=== PATIENT | male | born 1945 | race Caucasian/White ===

== ENCOUNTER 2024-12-15 14:02 | Outpatient (REF) | payer OTHER, SELFPAY ==
--- NOTE | ~2024-12-15 | XR_ITS ---
EXAMINATION: XR LUMBAR SPINE 4 OR MORE VIEWS HISTORY: M43.16 - Spondylolisthesis, lumbar region COMPARISON: There are no prior studies for comparison. FINDINGS: AP, and neutral, flexion, and extension lateral views of the lumbar spine are submitted. Osseous mineralization is normal. Five nonrib-bearing lumbar vertebral bodies are identified, maintaining normal height without evidence of fracture. There is slight retrolisthesis of L1 on L2 and L2 on L3, and slight spondylolisthesis of L4 on L5. There is no significant change with flexion or extension.. There is severe degenerative disc disease with disc space narrowing and osteophyte formation. There is osteoarthritis of the facet joints. The visualized paraspinal soft tissues are unremarkable. XR/XR lumbar spine 4V min IMPRESSION: Moderate to severe degenerative disc disease. Slight retrolisthesis of L1 on L2 and L2 on L3, and slight spondylolisthesis of L4 on L5. There is no change in flexion or extension. Electronically signed by: Cristian Keen MD 12/16/2024 07:44 AM EDT
== END 2024-12-15 14:03 | disposition home or self-care (01) ==
LOC: HO.HOSX 14:02
PROVIDERS: PCP Internal Medicine; Referring Provider Internal Medicine; Visit Provider Neurological Surgery
DX: M43.16 Spondylolisthesis, lumbar region (principal)
CPT/HCPCS: 72110; 99202

== ENCOUNTER 2024-12-15 14:02 | Outpatient (AMB) | payer MEDICARE, OTHER, SELFPAY ==
[2024-12-15 14:34] VITALS: BMI 27.6
--- NOTE | 2024-12-15 14:34 | A.SPINEOV_ITS ---
Vital Signs 12/15/24 14:34 Height 5 ft 6 in Weight 171 lb BMI 27.6 Intake Visit Reasons: Back pain Intake Note: Mr. Merchant is here today c/o back pain. Diabetes Physician Required: No Allergies morphine Allergy (Severe, Verified 12/15/24 14:41) Anaphylaxis Physical Exam Vital Signs: BMI result Body Mass Index 27.6 Assessment & Plan Assessment & Plan (1) Spondylolisthesis, lumbar region: Code(s): M43.16 - Spondylolisthesis, lumbar region Category: Medical Plan: Dear colleague Thank you for referring Corbin Merchant to the office today with a chief complaint of back pain with walking and standing. HPI: This 79-year-old male has a 5 year history of back pain without radiation down his legs. The pain comes with walking and standing. Bending forward relieves the pain. Walking with a cane improves the walking distance. He likes to sit in his favorite chair. Stationary bike can be done without limitations. He takes 3-4000 mg of Tylenol daily to deal with his complaints. He tried all forms of conservative management. He saw 2 neurosurgeons who declined surgery. He comes in for another opinion. PMH: Hypertension, DVT with lifelong anticoagulation, shoulder replacement, left knee left hip replacement Medications: Eliquis, , rosuvastatin, prednisolone Tylenol PM Allergies: Morphine Social history: . Retired tool grinding technician. Physical Exam: Pleasant male. He walks in a flexed position Radiological Studies: MRI done at [facility] shows a grade 1 L4-5 spondylolisthesis. There is moderate spinal stenosis at L2-3 and L3-4. This diffuse lumbar degenerative disc disease with the exception of L4-5. Flexion- extension x-rays today show no signs of instability. Impression/Plan: This patient is suffering from back pain with walking and standing without neurogenic claudication symptoms. The results of surgery are poor in his patient category. The L4-5 spondylolisthesis show no signs of instability and therefore I think it is not the cause for symptoms. On top of that there is osteopenia/osteoporosis visible on the x-rays. I advised him to walk with 2 sticks to prolong his walking distance. Cycling will be good for his overall health and should not elicit any symptoms. Thank you for allowing me to participate in your patients care. total time spent was 50 minutes in counseling ,coordination of plan, personal review of imaging, surgical decision making and subsequent plan Artemio Felipe MD, PhD Spine Fellowship Trained Neurosurgeon Director, [facility] Orders: Orders XR lumbar spine 4V min Today M43.16 - Spondylolisthesis, lumbar region Coding Level of Care Code New Pt Level 4 (41177) Diagnoses Spondylolisthesis, lumbar region M43.16
--- OUTSIDE RECORDS SUMMARY | 2024-12-15 16:04 | XMS_ITS | Continuity of Care Document ---
Author Organization [facility] Address [address] [id number] Phone Care Team Providers Care Target Man Name Role Phone Aristeo WARNER, PhD, KARSTEN, Marilou Unavailable Un available Allergies, Adverse Reactions, Alerts Substance Reaction Status Criticality morphine Active No Information Medications Medication Instructions Dosage Effective Dates (start - stop) Status Comments prednisolone acetate (PF) 1 % eye drops,suspension - Active rosuvastatin 10 mg tablet take 1 tablet by oral route every day 10 MG - Active ramipril 10 mg capsule take 1 capsule by oral route every day 10 MG - Active Eliquis 5 mg tablet take 1 tablet by ora l route 2 times every day 5 MG - Active Procedures Procedure Date Office/Outpatient Visit, [facility] Advance Directives Directive Yes / No Effective Date File Name No Information Encounters Encounter Description Practice Location Reason(s) For Visit Diagnoses Date Provider Providers Copied on Encounter [facility], [address] [place] [address], [address] [place] [address], tel:[phone] Aristeo No Information Aristeo Zamarripa. [address] [place] [address], [address] [place] [address], . tel:[phone] Office/Outpati ent Visit, [facility], [address] [place] [address], [address] [place] [address], tel:[phone] Aristeo Sleep apnea, initial (chief complaint) IVONNE (obstructive sleep apnea) Aristeo Zamarripa. [address] [place] [address], [address] [place] [address], . tel:[phone] Specialist: Luis Carlos Mendes, [address] [place], [address]. tel:[phone] ring Provider: Corbin Draper MD, [address] [place] [address], [address]. tel:[phone] Family History Family Member Type Diagnosis Age At Onset No Information Payers Payer name Insurance type Covered republican ID Authoriza tion(s) No Information Social History Type Description Quantity Date Captured Comments Sex Male Smoking Status No Information Chief Complaint And Reason For Visit No Information Reason For Referral Reason For Referral No Information History Of Present Illness Encounter Date Complaint History Of Prese nt Illness Sleep apnea, initial Corbin is see n today to establish care regarding an [facility] consultation. He was diagnosed with moderate to severe sleep apnea years ago reportedly. He has gained weight unintentionally since. He has tried PAP therapy in the past and has noticed intolerance. He reports feeling claustrophobic with the PAP device He had HSAT in November 2023 reportedly. Functional Status Date Functional Assessmen t No Information Instructions Date Instruction Additional Infor mation No Information Assessments Type Assessment Date No Information Patient Care Teams Name Effective Dates (start - stop) Status Members No Information
== END 2024-12-15 15:39 | disposition home or self-care (01) ==
PROVIDERS: PCP Internal Medicine; Referring Provider Internal Medicine; Visit Provider Neurological Surgery
DX: M43.16 Spondylolisthesis, lumbar region (principal)
CPT/HCPCS: 99204

== ENCOUNTER → 2024-12-15 15:11 | Outpatient (BNV) | payer OTHER, SELFPAY | PROVIDERS: PCP Internal Medicine; Referring Provider Internal Medicine; Visit Provider Radiology Diagnostic Radiology | DX: M43.16 Spondylolisthesis, lumbar region (principal) | CPT/HCPCS: 72110 ==